=== PATIENT | female | born 1940 | race Asian ===

== ENCOUNTER 2017-10-06 21:42 | Emergency (ER) | payer MEDICARE ==
[~2017-10-06] VITALS: Ht 152.4 cm; Wt 51.3 kg
[2017-10-06 22:12] VITALS: BP 182/57
--- NOTE | 2017-10-06 23:03 | Emergency Room Report ---
History of Present Illness General Chief Complaint: Multiple Trauma/Fall Source: Patient Present Illness [facility] This a 76-year-old [place] Citizen female with history of high blood pressure. She presents with chief complaint of Laceration and head injury. She was standing on the couch to change the clock because of daylight saving time. She slipped off the couch and fell backward hitting her head on the dresser. She sustained a laceration about her head. No loss of consciousness. No other injury. No nausea no vomiting. No fever or chills. Allergies: Coded Allergies: HYDROCHLOROTHIAZIDE (Verified Allergy, Unknown, 10/06/17) OLMESARTAN (Verified Allergy, Unknown, 10/06/17) Patient History Past Medical History: see triage record, old chart reviewed, HTN Past Surgical History: other Pertinent Family History: none Social History: Denies: smoking Last Menstrual Period: NA Now: No Immunizations: other Reviewed Nursing Documentation: PMH: Agreed, PSxH: Agreed Nursing Documentation-PMH Hx Hypertension: Yes Review of Systems Eye: Denies: eye pain, blurred vision ENT: Denies: ear pain, nose congestion, throat swelling Respiratory: Denies: cough, shortness of breath Cardiovascular: Denies: chest pain, palpitations Gastrointestinal: Denies: abdominal pain, diarrhea, nausea, vomiting Musculoskeletal: Denies: back pain, joint pain Skin: Denies: rash Neurological: Denies: headache, numbness Endocrine: Denies: increased thirst, increased urine Hematologic/Lymphatic: Denies: easy bruising All Other Systems: negative except mentioned in HPI Physical Exam Vital Signs Date Time Temp Pulse Resp B/P (MAP) Pulse Ox O2 Delivery O2 Flow Rate FiO2 10/06/17 21:52 97.7 64 18 205/80 99 Room Air 97.7 vitals with high blood pressure Sp02 EP Interpretation: reviewed, normal General Appearance: well appearing, no apparent distress, alert Head: normocephalic, other - 2 cm laceration to occiput. No active bleeding Eyes: bilateral eye PERRL, bilateral eye EOMI ENT: hearing grossly normal, normal pharynx Neck: full range of motion, supple, no meningismus Respiratory: chest non-tender, lungs clear, normal breath sounds Cardiovascular #1: regular rate, rhythm, no murmur Gastrointestinal: normal bowel sounds, non tender, no mass, no organomegaly, no bruit, non-distended Musculoskeletal: back normal, gait/station normal, normal range of motion Neurologic: alert, oriented x3 Psychiatric: mood/affect normal Skin: warm/dry Procedures Laceration/Wound Repair Laceration/Wound Repair : Consent: Verbal Wound Location: head Wound's Depth, Shape: linear, contused tissue Wound Length (cm): 2 Wound Explored: clean Irrigated w/ Saline (ccs): 1000 Betadine Prep?: Yes Anesthesia: Lidocaine w/ Epi Volume Anesthetic (ccs): 3 Wound Repaired With: sutures Suture Size/Type: 3:0, proline Number of Sutures: 3 Patient Tolerated: Well Complications: None Medical Decision Making Diagnostic Impression: Primary Impression: Head injury, acute Qualified Codes: S09.90XA - Unspecified injury of head, initial encounter Additional Impressions: Scalp laceration Qualified Codes: S01.01XA - Laceration without foreign body of scalp, initial encounter Hypertension Qualified Codes: I10 - Essential (primary) hypertension ER Course Patient with a fall and a scalp injury. No internal bleeding. Her blood pressure is coming down with systolic in the 150 now without any intervention. CT/MRI/US Diagnostic Results CT/MRI/US Diagnostic Results : Imaging Test Ordered: CT head Impression negative per radiologist Last Vital Signs Date Time Temp Pulse Resp B/P (MAP) Pulse Ox O2 Delivery O2 Flow Rate FiO2 10/06/17 22:12 97.7 82 18 182/57 99 Room Air 97.7 Status: improved Disposition: HOME, SELF-CARE Condition: Stable Additional Instructions: Keep wound clean. Suture out in 7 days. Follow-up with your doctor in 7 days. Return if worse. CORY GREEN M.D. Oct 06, 2017 23:03
[2017-10-06 23:08] VITALS: BP 156/62
[2017-10-06 23:15] VITALS: BP 156/62
--- NOTE | 2017-10-07 09:40 | Diagnostic Imaging Report ---
Indication: Trauma, pain, status post fall Technique: Continuous helical CT scanning of the head was performed without intravenous contrast material. Axial and coronal 5 mm sections were generated. Radiation dose was minimized using automated exposure control Dose: Total Dose Length Product - DLP 1291.[address] Dose Index - CTDIvol(s) 70.38 mGy. Comparison: Findings: The ventricular system is normal in size and configuration. There is no shift of midline structures. No abnormal extra-axial fluid collections are noted. There is no evidence of intracerebral bleeding. No other abnormal high or low density areas are noted within the brain. There is evidence of prior bilateral cataract surgery. The sinuses are clear. The mastoids are clear. The calvarium is intact. Nonspecific 8 mm lucency is seen in the right frontal bone. Impression: Negative for acute intracranial bleed or mass effect 8mm right frontal bone lucency. Consider bone scan for further evaluation This agrees with the preliminary interpretation provided overnight by [facility]. The CT scanner at [facility] is accredited by the [employer] and the scans are performed using protocols designed to limit radiation exposure to as low as reasonably achievable to attain images of sufficient resolution adequate for diagnostic evaluation.
== END 2017-10-06 23:16 | disposition home or self-care (01) ==
LOC: EMR 23:12
DX: S01.01XA Laceration without foreign body of scalp, initial encounter (principal); S09.90XA Unspecified injury of head, initial encounter; I10 Essential (primary) hypertension; Z88.8 Allergy status to other drugs, medicaments and biological substances; W08.XXXA Fall from other furniture, initial encounter; Y92.009 Unspecified place in unspecified non-institutional (private) residence as the place of occurrence of the external cause
CPT/HCPCS: 70450; 99284

== ENCOUNTER 2017-10-11 02:12 | Emergency (ER) | payer MEDICARE ==
[~2017-10-11] VITALS: Ht 152.4 cm; Wt 51.3 kg
[2017-10-11] MEDS ORDERED: TENORMIN50 MG ORAL (02:27)
[2017-10-11] MEDS ORDERED: CATAPRES0.1 MG ORAL (02:27)
[2017-10-11] MEDS ORDERED: BENADRYL25 MG ORAL (02:27)
[2017-10-11] MEDS ORDERED: BENICAR HCT 401 EAC1 ORAL (02:27)
[2017-10-11 02:45] VITALS: BP 151/56
--- NOTE | 2017-10-11 03:11 | Emergency Room Report ---
History of Present Illness General Chief Complaint: General Complaint Source: Patient Present Illness HPI Patient is a 76-year-old female who presented after increased hypertension. Patient stated home she had had an elevated blood pressure. Patient denied any fever. She reported having increased blood pressure and had taken clonidine as well as atenolol prior to arrival. Patient reported having had no headache or visual changes. She stated that she had not been having any chest discomfort. She denied any vomiting or other concerns. Allergies: Coded Allergies: HYDROCHLOROTHIAZIDE (Verified Allergy, Unknown, 10/06/17) OLMESARTAN (Verified Allergy, Unknown, 10/06/17) Patient History Past Medical History: see triage record Now: No Reviewed Nursing Documentation: PMH: Agreed, PSxH: Agreed Nursing Documentation-PMH Past Medical History: No History, Except For Hx Hypertension: Yes Review of Systems All Other Systems: negative except mentioned in HPI Physical Exam Vital Signs Date Time Temp Pulse Resp B/P (MAP) Pulse Ox O2 Delivery O2 Flow Rate FiO2 10/11/17 02:22 97.5 64 14 153/62 98 Room Air 97.5 Sp02 EP Interpretation: reviewed, normal General Appearance: normal inspection, well appearing, no apparent distress, alert, GCS 15 Head: atraumatic ENT: normal ENT inspection, hearing grossly normal, normal voice Neck: normal inspection, full range of motion, supple, no bony tend Respiratory: normal inspection, lungs clear, normal breath sounds, no respiratory distress, no retraction, no wheezing Cardiovascular #1: regular rate, rhythm, no edema Gastrointestinal: normal inspection, normal bowel sounds, non tender, soft, no guarding, no hernia Genitourinary: no CVA tenderness Musculoskeletal: normal inspection, back normal, normal range of motion Neurologic: normal inspection, alert, oriented x3, responsive, stitch burnisher III-XII nml as tested, speech normal Psychiatric: normal inspection, judgement/insight normal, mood/affect normal Skin: normal inspection, normal color, no rash Medical Decision Making Diagnostic Impression: Primary Impression: Hypertension ER Course Patient presented for hypertension. Patient has a benign exam and does not appear to require any further imaging or laboratory testing at this time. The patient is advised to follow up with primary care doctor in 1-2 days. Patient is advised to return if any worsening condition or if any changes in status that are concerning. This report is dictated with [employer] retail project merchandiser software which may occasionally lead to discrepancies related to use of this software. Last Vital Signs Date Time Temp Pulse Resp B/P (MAP) Pulse Ox O2 Delivery O2 Flow Rate FiO2 10/11/17 02:45 97.5 55 14 151/56 98 Room Air 97.5 Status: improved Disposition: HOME, SELF-CARE Condition: Stable Patient Instructions: Hypertension Rafi Trotter Oct 11, 2017 03:11
[2017-10-11 03:12] VITALS: BP 130/65
== END 2017-10-11 03:12 | disposition home or self-care (01) ==
LOC: EMR 02:40
DX: I10 Essential (primary) hypertension (principal); Z88.8 Allergy status to other drugs, medicaments and biological substances
CPT/HCPCS: 99282

== ENCOUNTER 2017-10-14 09:35 | Emergency (ER) | payer MEDICARE ==
[~2017-10-14] VITALS: Ht 157.5 cm; Wt 54.4 kg
[~2017-10-14 09:35] MED LIST: BENADRYL25 MG ORAL; BENICAR HCT 401 EAC1 ORAL; CATAPRES0.1 MG ORAL; TENORMIN50 MG ORAL
[2017-10-14 09:48] VITALS: BP 104/56
[2017-10-14 10:26] VITALS: BP 104/56
--- NOTE | 2017-10-14 10:26 | Emergency Room Report ---
History of Present Illness General Chief Complaint: Wound Recheck/Suture Removal Present Illness HPI Patient is a 76-year-old female who presented for wound recheck and suture removal. Patient had stitches placed a proximal been one week ago. The patient denies any current complaints. She denied any fever. She had normal blood pressure. She denies any severe headache or vomiting. Allergies: Coded Allergies: HYDROCHLOROTHIAZIDE (Verified Allergy, Unknown, 10/06/17) OLMESARTAN (Verified Allergy, Unknown, 10/06/17) Patient History Past Medical History: see triage record Reviewed Nursing Documentation: PMH: Agreed, PSxH: Agreed Nursing Documentation-PMH Hx Hypertension: Yes Review of Systems All Other Systems: negative except mentioned in HPI Physical Exam Vital Signs Date Time Temp Pulse Resp B/P (MAP) Pulse Ox O2 Delivery O2 Flow Rate FiO2 10/14/17 09:45 97.6 62 20 104/56 99 97.5 10/14/17 09:48 Room Air General Appearance: well appearing, no apparent distress, alert, GCS 15 Head: normocephalic, atraumatic ENT: hearing grossly normal, normal voice Neck: full range of motion, supple Respiratory: no respiratory distress, speaking full sentences Musculoskeletal: no calf tenderness Neurologic: normal inspection, alert, oriented x3, responsive, motor strength/ tone normal, normal gait Psychiatric: mood/affect normal Skin: no rash, laceration - healed laceration Medical Decision Making Diagnostic Impression: Primary Impression: Encounter for removal of sutures ER Course Patient presented for wound check. Differential diagnosis included was not limited to infected wound, nonhealed wound, neuroma, healed wound. The wound appears well-healed. Sutures were removed. The patient shows no evidence of altered mental status are concerning signs consistent with a subdural hematoma. The patient is advised to follow up with primary care doctor in 1-2 days. Patient is advised to return if any worsening condition or if any changes in status that are concerning. This report is dictated with [employer] medical recruiter software which may occasionally lead to discrepancies related to use of this software. Last Vital Signs Date Time Temp Pulse Resp B/P (MAP) Pulse Ox O2 Delivery O2 Flow Rate FiO2 10/14/17 09:48 97.5 62 20 104/56 99 Room Air 97.5 Status: improved Disposition: HOME, SELF-CARE Condition: Stable Referrals: [facility],REFERRING (PCP) Patient Instructions: Suture Removal, Care After Rafi Trotter Oct 14, 2017 10:26
== END 2017-10-14 10:25 | disposition home or self-care (01) ==
LOC: EMR 10:15
DX: S01.01XD Laceration without foreign body of scalp, subsequent encounter (principal); Z88.8 Allergy status to other drugs, medicaments and biological substances; I10 Essential (primary) hypertension
CPT/HCPCS: 99281